=== PATIENT | female | born 1950 | race Caucasian/White ===

== ENCOUNTER 2024-03-02 09:10 | Outpatient (CLI) | payer MEDICARE, OTHER ==
[~2024-03-02 09:10] MED LIST: ATOR20TA66 PO; ESTR1.25 PO; ZOLP10TA5 PO
[2024-03-02] MEDS ORDERED: iohexol 350MG/ML 100ml bottle IV ONE (09:36)
== END 2024-03-02 23:59 | disposition home or self-care (01) ==
LOC: RAD 09:10
PROVIDERS: ATTEND Registered Nurse
DX: I71.43 Infrarenal abdominal aortic aneurysm, without rupture (principal); I70.0 Atherosclerosis of aorta; Z90.710 Acquired absence of both cervix and uterus
CPT/HCPCS: 74177; Q9967